=== PATIENT | male | born 1965 | race Caucasian/White ===

== ENCOUNTER 2018-07-26 10:20 | Day surgery (SDC) | payer OTHER ==
[~2018-07-26] VITALS: Ht 170.2 cm; Wt 90.7 kg
[2018-07-26] MEDS ORDERED: IOHEXOL 300 mgI/mL, 50 mL INFUS..BTL IV ONE (10:21)
[2018-07-26] MEDS ORDERED: LIDOCAINE 2%, 20 ML MDV INJ ONE (10:21)
[2018-07-26] MEDS ORDERED: methylPREDNISolone ACETATE 80 MG/ML IM ONE (10:21)
[2018-07-26] MEDS ORDERED: BUPIVACAINE /PF 0.25% 30 ML VIAL INJ ONE (10:21)
[2018-07-26] MEDS ORDERED: MIDAZOLAM HCL 5 MG/5 ML VIAL ONE ×2 (11:08→16:44)
[2018-07-26] MEDS ORDERED: MIDAZOLAM HCL 5 MG/5 ML VIAL IVP ONE (12:00)
[2018-07-26] MEDS ORDERED: DIPHENHYDRAMINE INJ 50 MG/ML VIAL IVP ONE (12:04)
[2018-07-26] MEDS ORDERED: MORPHINE SULFATE 10 MG/ML VIAL ONE (13:37)
[2018-07-26 17:50] VITALS: BP_SYST 144
[2018-07-26] MEDS ORDERED: DIPHENHYDRAMINE INJ 50 MG/ML VIAL ONE (18:30)
== END 2018-07-26 14:30 | disposition home or self-care (01) ==
LOC: SDS 10:20
PROVIDERS: ATTEND Internal Medicine
DX: M51.16 Intervertebral disc disorders with radiculopathy, lumbar region (principal); Z98.890 Other specified postprocedural states; Z79.899 Other long term (current) drug therapy
CPT/HCPCS: 62323; J1040; J1200; J2001; J2250; J2270; J3490; Q9967

== ENCOUNTER 2019-01-02 08:55 | Day surgery (SDC) | payer MEDICAID ==
[~2019-01-02] VITALS: Ht 170.2 cm; Wt 93.0 kg
[2019-01-02] MEDS ORDERED: BUPIVACAINE /PF 0.25% 30 ML VIAL INJ ONE (08:56)
[2019-01-02] MEDS ORDERED: IOPAMIDOL 50 ML VIAL IV ONE (08:56)
[2019-01-02] MEDS ORDERED: LIDOCAINE 2%, 20 ML MDV INJ ONE (08:56)
[2019-01-02] MEDS ORDERED: methylPREDNISolone ACETATE 40 MG/ML IM ONE (08:56)
[2019-01-02] MEDS ORDERED: MIDAZOLAM HCL 5 MG/5 ML VIAL ONE ×2 (09:51→11:18)
[2019-01-02] MEDS ORDERED: DIPHENHYDRAMINE INJ 50 MG/ML VIAL ONE (09:51)
[2019-01-02 11:15] VITALS: BP_SYST 140
== END 2019-01-02 14:27 | disposition home or self-care (01) ==
LOC: SDS 08:55 → SMU 08:55 → SDS 14:27
PROVIDERS: ATTEND Internal Medicine
DX: M51.16 Intervertebral disc disorders with radiculopathy, lumbar region (principal); M54.5 Low back pain; M96.1 Postlaminectomy syndrome, not elsewhere classified; M79.10 Myalgia, unspecified site; I10 Essential (primary) hypertension
CPT/HCPCS: 62323; J1030; J1200; J2001; J2250; J3490; Q9967; 76000